=== PATIENT | male | born 1985 | race Caucasian/White ===

== ENCOUNTER 2017-02-17 19:52 | Emergency (ER) | payer SELFPAY ==
[~2017-02-17] VITALS: Ht 175.3 cm; Wt 71.4 kg
[2017-02-17] MEDS ORDERED: ATIVAN1 MG PO (21:10)
[2017-02-17] MEDS ORDERED: ATARAX,VISTARIL25 MG PO (21:10)
[2017-02-17 21:26] VITALS: BP 138/85
== END 2017-02-17 21:31 | disposition home or self-care (01) ==
LOC: EME 19:52
DX: F41.9 Anxiety disorder, unspecified (principal); G47.00 Insomnia, unspecified
CPT/HCPCS: 99281; 99284; Q0177